=== PATIENT | female | born 2000 | race Caucasian/White ===

== ENCOUNTER 2023-06-26 11:36 | Inpatient (IN) | payer SELFPAY ==
[~2023-06-26] VITALS: Ht 175.3 cm; Wt 102.8 kg
[2023-06-26] VITALS (9 sets, daily range): BP systolic 126–157; BP diastolic 61–84; O2SAT 97–98
[2023-06-26] MEDS ORDERED: ACET-907 PO (12:06)
[2023-06-26] MEDS ORDERED: VITATAB47 PO (12:06)
[2023-06-26] MEDS ORDERED: PRENTAB9 PO (12:06)
[2023-06-26] MEDS ORDERED: ASPI81CH33 PO (12:06)
[2023-06-26] MEDS ORDERED: LIDOCAINE 1% MDV 20ML VIAL As Ordered ONE (12:09)
[2023-06-26] MEDS ORDERED: OXYTOCIN 30UNITS IN 0.9% NaCl 500ML IV BAG As Ordered ONE (12:09)
[2023-06-26] MEDS ORDERED: HOME MED LIST COMPLETE! XX SCH ×2 (12:10→16:00)
[2023-06-26 12:24] LABS: HEMOGLOBIN 12.9 g/dl (12.0-15.5); MEAN CORPUSCULAR HEMOGLOBIN 30.9 pg (27.0-33.0); MEAN CORPUSCULAR HGB CONC 33.9 g/dl (32.0-36.5); MEAN CORPUSCULAR VOLUME 91.1 fl (80.0-96.0); PLATELET COUNT, AUTOMATED 311 10^3/uL (150-450); RED BLOOD COUNT 4.17 10^6/uL (4.00-5.40); WHITE BLOOD COUNT 15.5 10^3/uL (4.0-10.0)
[2023-06-26] MEDS ORDERED: LACTATED RINGER'S 1000 ML IV STA (12:26)
[2023-06-26] MEDS ORDERED: OXYTOCIN DRIP 30 UNITS in IV 1 EA IV PRN ×4 (12:30)
[2023-06-26] MEDS ORDERED: METHYLERGONOVINE MALEATE 0.2MG/ML 1ML VIAL IM PRN (12:30)
[2023-06-26] MEDS ORDERED: LIDOCAINE 1% MDV 20ML VIAL INFIL PRN (12:30)
[2023-06-26] MEDS ORDERED: CARBOPROST TROMETHAMINE 250 MCG/ML AMP IM PRN (12:30)
[2023-06-26] MEDS ORDERED: TRANEXAMIC ACID INJection 1,000 MG in NS 100 ML IV PRN (12:30)
[2023-06-26] MEDS ORDERED: OXYTOCIN INJ 10UNITS/ML 1ML VIAL IM PRN (12:30)
[2023-06-26] MEDS ORDERED: LR 1,000 ML IV SCH (12:30)
[2023-06-26 13:46] LABS: CORD GAS ABE V -3.1; CORD GAS HCO3 V 22.6 MMOL/L; CORD GAS O2 SAT V 62.9 %; CORD GAS PCO2 V 42.9 mmHg; CORD GAS PH V 7.34 UNITS; CORD GAS PO2 V 26.9 mmHg; CORD GAS SBC V 20.9 MMOL/L; CORD GAS TCO2 V 23.9 MMOL/L
[2023-06-26 13:46] LABS: CORD GAS ABE A -4.5; CORD GAS HCO3 A 26.1 MMOL/L; CORD GAS O2 SAT A 37.1 %; CORD GAS PCO2 A 72.1 mmHg; CORD GAS PH A 7.176 UNITS; CORD GAS PO2 A 21.2 mmHg; CORD GAS SBC A 19.2 MMOL/L; CORD GAS TCO2 A 28.3 MMOL/L
[2023-06-26] MEDS ORDERED: RHOGAM 300MCG (1500IU) INJ IM SCH (14:00)
[2023-06-26] MEDS ORDERED: DIBUCAINE 1% OINTMENT 30GM TOP PRN (14:00)
[2023-06-26] MEDS ORDERED: ACETAMINOPHEN 500 MG TAB PO PRN (14:00)
[2023-06-26] MEDS ORDERED: IBUPROFEN 600MG TAB PO PRN (14:00)
[2023-06-26] MEDS ORDERED: ACETAMINOPHEN TAB 650MG DOSE (2X325MG) PO PRN (14:00)
[2023-06-26] MEDS ORDERED: ONDANSETRON 4MG 2ML VIAL IV PRN (14:00)
[2023-06-26] MEDS ORDERED: DOCUSATE SODIUM 100MG CAPSULE PO PRN (14:00)
[2023-06-26] MEDS ORDERED: ANUSOL HC CREAM 30GM TOP PRN (14:00)
[2023-06-26] MEDS ORDERED: METHYLERGONOVINE MALEATE 0.2 MG TAB PO PRN (14:00)
[2023-06-26] MEDS: IBUPROFEN 800 MG TAB PO PRN (14:36)
[2023-06-26] MEDS ORDERED: LEXA1TAB PO (16:00)
[2023-06-27 05:49] VITALS: BP 130/78; O2SAT 97
[2023-06-27 07:44] LABS: HEMATOCRIT 35.7 % (36.0-47.0); HEMOGLOBIN 11.9 g/dl (12.0-15.5); MEAN CORPUSCULAR HEMOGLOBIN 30.2 pg (27.0-33.0); MEAN CORPUSCULAR HGB CONC 33.3 g/dl (32.0-36.5); MEAN CORPUSCULAR VOLUME 90.6 fl (80.0-96.0); PLATELET COUNT, AUTOMATED 277 10^3/uL (150-450); RED BLOOD COUNT 3.94 10^6/uL (4.00-5.40)
[2023-06-27] MEDS: PRENATAL VITAMINS CHEWABLE TABLET PO SCH (10:19)
[2023-06-27] MEDS: ESCITALOPRAM OXALATE 10 MG TAB (LEXAPRO) PO SCH (10:19)
[2023-06-27] MEDS: IBUPROFEN 800 MG TAB PO PRN (10:20)
[2023-06-27 18:00] VITALS: BP 136/84
[2023-06-28 05:46] VITALS: BP 121/65; O2SAT 99
[2023-06-28] MEDS ORDERED: MEASLES,MUMPS,RUBELLA VACCINE INJ (MMR-II) SC.IMMUN ONE (09:00)
[2023-06-28] MEDS ORDERED: ACET1TAB55 PO (09:59)
[2023-06-28] MEDS ORDERED: COLA100C5 PO (09:59)
[2023-06-28] MEDS ORDERED: LEXA1TAB PO (09:59)
[2023-06-28] MEDS ORDERED: IBUP-1022 PO (09:59)
[2023-06-28] MEDS: PRENATAL VITAMINS CHEWABLE TABLET PO SCH (10:02)
[2023-06-28] MEDS: ESCITALOPRAM OXALATE 10 MG TAB (LEXAPRO) PO SCH (10:02)
== END 2023-06-28 13:15 | disposition home or self-care (01) | DRG 560 ==
LOC: M LDO 11:36 → M LDI 11:56 → M OBS 16:09
PROVIDERS: ADMIT Obstetrics & Gynecology; ATTEND Obstetrics & Gynecology
PROC: 10E0XZZ Delivery of Products of Conception, External Approach (ICD-10-PCS; principal; 2023-06-26)
PROC: 10907ZC Drainage of Amniotic Fluid, Therapeutic from Products of Conception, Via Natural or Artificial Opening (ICD-10-PCS; 2023-06-26)
DX: O77.0 Labor and delivery complicated by meconium in amniotic fluid (principal); O72.1 Other immediate postpartum hemorrhage; Z37.0 Single live birth; Z3A.39 39 weeks gestation of pregnancy